=== PATIENT | female | born 1970 | race Caucasian/White ===

== ENCOUNTER 2022-09-12 16:07 | Emergency (ER) | payer OTHER, SELFPAY ==
--- NOTE | ~2022-09-12 | XR_ITS ---
EXAM: XR ankle RT min 3V, XR foot RT min 3V DATE: 09/12/2022 16:41 HISTORY: INJURY 2 MONTHS AGO,PAIN ANTERIOR,LATERAL RT ANKLE . COMPARISON: None available. FINDINGS: Normal mineralization. No fracture or dislocation. No lytic or blastic lesion. Joint space s are maintained. Plantar enthesopathy. No erosion or periosteal change. Soft tissues within normal l imits. IMPRESSION: No acute osseous finding in the right ankle or foot. Reviewed, dictated and finalized at location K. IMPRESSION: No acute osseous finding in the right ankle or foot.
[2022-09-12 16:20] VITALS: BP 129/90; PULSE 82; RESP 16; TEMP 36.7; O2SAT 100
--- NOTE | 2022-09-12 16:21 | ED.LOWEXIN ---
HPI - Extremity Injury (Lower) General Chief Complaint: Extremity Injury, Lower Stated Complaint: rt ankle injury Time Seen by Provider: 09/12/22 16:10 Source: patient and RN notes reviewed History of Present Illness HPI Narrative: Patient is a 52-year-old female who presents to urgent care with complaints of right ankle pain and discomfort. Patient states that it started when she missed a step and rolled her right ankle outward at the end of July. Patient states that she has had continual ankle discomfort especially with full flexion or range of motion. Patient has been using ice and compression without much relief. Patient has not been seen by both biter since the incident. No other acute complaints. No acute distress noted. Patient aware of the plan of care. Some parts of this dictation were generated by voice recognition software and may contain typographical and/or grammatical inaccuracies. Related Data Home Medications Medication Instructions Recorded Confirmed multivitamin 1 tablet PO DAILY 07/20/19 12/26/21 Allergies Allergy/AdvReac Type Severity Reaction Status Date / Time amoxicillin Allergy Unknown Unknown Verified 09/12/22 16:27 clindamycin Allergy Unknown Rash Verified 09/12/22 16:27 Penicillins Allergy Unknown RASH Verified 09/12/22 16:27 Review of Systems Review of Systems: CONSTITUTIONAL: Denies fever, chills, or sweats. EYES: Denies visual changes, redness, or discharge. ENT: Denies rhinorrhea, congestion, sore throat, or otalgia. CARDIOVASCULAR: Denies chest pain, palpitations, or edema. RESPIRATORY: Denies cough or dyspnea. GASTROINTESTINAL: Denies abdominal pain, nausea, vomiting, or diarrhea. GENITOURINARY: Denies dysuria or hematuria. SKIN: Denies rash or itching. MUSCULOSKELETAL: Reports right ankle pain NEUROLOGIC: Denies headache, numbness, or weakness. All other systems reviewed are negative, except as documented in HPI. [facility] Past Medical History Medical History Breast cancer, right Carcinoma of right breast Headache Thyroid disease Surgical History Surgical History Hx of cholecystectomy (~2018) Hx of laparoscopy (~2008) Family History Family History Mother Family history of malignant neoplasm of breast in first degree relative Family history of thyroid disease Hypertension Grandparent Family history of malignant neoplasm of breast in first degree relative Other Breast cancer Social History Social History Years smoked: 1 Smoking status: Never smoker Tobacco type: cigarettes Second hand tobacco smoke exposure: No Alcohol intake: current Substance use: never Living arrangements: with family Occupation/Education: occupation Gender identity (if verbalized by the patient): Female Spiritual care concerns: No Comments At the time of my signature, I reviewed and agree with the nursing past medical, surgical, social, and family history. There is no relevant family history pertinent to the patient complaint. Exam Narrative: GENERAL: This is a well-nourished, well-developed patient, in no apparent distress. HEAD: normocephalic, atraumatic. EYES: PERRL. Sclera clear/white. Vision is grossly intact. EARS: External ears normal, NOSE: External nose normal with no obvious nasal discharge, nares without redness, no rhinorrhea. THROAT: Mucous membranes moist, posterior pharynx clear. NECK: Neck supple NEURO: awake, alert, and oriented to person, place and time. There were no obvious focal neurologic abnormalities. EXTREMITIES: Mild edema noted to the right lateral malleolus with mild tenderness. Positive strong right pedal pulse with capillary refill less than 2 seconds. Mild exacerbated pain with flexion to the right lower extremity. No obviou
== END 2022-09-12 17:03 | disposition home or self-care (01) ==
PROVIDERS: Emergency Provider Nurse Practitioner Family; PCP Family Medicine
DX: S93.401A Sprain of unspecified ligament of right ankle, initial encounter (principal); S96.911A Strain of unspecified muscle and tendon at ankle and foot level, right foot, initial encounter; Z85.3 Personal history of malignant neoplasm of breast; W10.9XXA Fall (on) (from) unspecified stairs and steps, initial encounter
CPT/HCPCS: 73610; 73630; 99214; G0463

== ENCOUNTER → 2023-07-16 16:17 | Outpatient (CLI) | payer OTHER, SELFPAY ==
--- NOTE | ~2023-07-16 | XR_ITS ---
EXAMINATION: XR cervical spine min 6V DATE: 07/16/2023 16:43 INDICATION: Neck pain. TECHNIQUE: 6 views of cervical spine including flexion and extension views were obtained. COMPARISON: None. FINDINGS: There is kyphosis of cervical spine. There is 2 mm retrolisthesis of C5 on C6. Vertebral lakia dy heights are normal. There is mildly decreased disc height at C4-C5, moderately decreased disc heig ht at C5-C6, and mildly decreased disc height at C6-C7. There is no abnormal motion with flexion or e xtension. At C5-C6, there is severe bilateral uncovertebral joint osteoarthritis. There is multilevel mild facet joint osteoarthritis. There is mild central canal stenosis at C5-C6. No prevertebral soft tissue swelling. IMPRESSION: 1. Moderate cervical spondylosis. Reviewed, dictated and finalized at location E. [employer]
== END ==
PROVIDERS: PCP Physician Assistant; Visit Provider Physician Assistant
DX: M43.02 Spondylolysis, cervical region (principal)
CPT/HCPCS: 72052